=== PATIENT | female | born 1980 | race Caucasian/White ===

== ENCOUNTER 2018-08-17 21:21 | Emergency (ER) | payer OTHER ==
[~2018-08-17] VITALS: Ht 147.3 cm; Wt 51.2 kg
[~2018-08-17 21:21] MED LIST: ACET1TAB40 PO; ADV10050 INH; AMOX1TAB10 PO; AZIT250T PO; BISM262O23 PO; FAMO-96 PO; FLUT16SP17 NASAL; GENT5DRO28 RIGHT EYE; IBUP-1542 PO; IBUP-1561 PO; LORA-441 PO
[2018-08-17 21:36] VITALS: Ht 147.3 cm; Wt 51.2 kg
[2018-08-18] MEDS ORDERED: LIDOCAINE 1% (MDV) 20 ML INJ SC ONE
[2018-08-18] MEDS ORDERED: LIDOCAINE 1% (MPF) 5 ML VIAL INFIL ONE (00:30)
[2018-08-18] MEDS ORDERED: CEFTRIAXONE 1 GM INJ IM ONE (00:30)
[2018-08-18] MEDS ORDERED: TRIMETHOPRIM/SULFAMETHOX (DS) TAB PO ONE (00:30)
[2018-08-18] MEDS ORDERED: NAPR-985 PO (01:13)
[2018-08-18] MEDS ORDERED: SULF1TAB31 PO (01:13)
[2018-08-18] MEDS ORDERED: CEPH-443 PO (01:13)
[2018-08-18 01:29] VITALS: BP 126/81; PULSE 86; RESP 18
--- NOTE | 2018-08-18 03:19 | ERD ---
ER Documentation Chief Complaint Chief Complaint right abdominal abscess x 2 weeks HPI History of Present Illness: 37-year-old female who reports past medical history of asthma coming in today with complaint of possible right abdominal abscess that occurred approximately 2 weeks ago. Patient reports that she was with her in [place] and she believes she was bit by symptom. Patient reports that there was warmth and tenderness to palpation to the area of concern. 1.5 weeks ago her squeeze the area and smelling, yellow discharge came out of it. At home pharmacological/nonpharmacological treatment for symptoms: Denies Denies social concerns; Denies recent foreign travel ROS All systems reviewed and are negative except as per history of present illness. 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 08/18/18 Sulfamethoxazole/Trimethoprim* (Bactrim Ds* Tablet) 1 Each Tablet, 1 TAB PO BID for SKIN INFECTION for 10 Days, #14 TAB Prov:LEXY TRACEY NP 08/18/18 Allergies Allergies: Coded Allergies: No Known Drug Allergies (Verified Allergy, Unknown, 08/17/18) PMhx/Soc History of Surgery: Yes (FACIAL AND EAR SURGERY 10 YEARS AGO ) Hx Respiratory Disorders: Yes (ASTHMA) Hx Alcohol Use: No Hx Substance Use: No Hx Tobacco Use: No Smoking Status: Never smoker FmHx Family History: No diabetes, No coronary disease Physical Exam Vitals Vital Signs Date Temp Pulse Resp B/P (MAP) Pulse Ox O2 O2 Flow FiO2 Time Delivery Rate 08/18/18 98.0 86 18 126/81 98 Room Air 01:29 (96) 08/17/18 97.1 84 18 137/63 97 21:36 (87) Physical Exam Const: No acute distress Head: Atraumatic Eyes: Normal Conjunctiva ENT: Normal External Ears, Nose and Mouth. Neck: Full range of motion. No meningismus. Resp: Clear to auscultation bilaterally Cardio: Regular rate and rhythm, no murmurs Abd: Soft, non tender, non distended. Normal bowel sounds Skin: No petechiae or rashes; 2 x 2 centimeter area that is hollow with purulent drainage and subcutaneous tissue, with surrounding erythema Back: No midline or flank tenderness Ext: No cyanosis, or edema Neur: Awake and alert Psych: Normal Mood and Affect Results 24 hrs Current Medications Medications Dose Sig/[place] Start Time Status Last (Trade) Ordered Route PRN Stop Time Admin Dose Reason Admin Lidocaine 20 ml ONCE ONCE 08/18/18 DC (Xylocaine SC 00:00 08/18/18 1% (Mdv) 20 00:01 ml) Ceftriaxone 1 gm ONCE ONCE 08/18/18 DC 08/18/18 Sodium IM 00:30 08/18/18 00:45 (Rocephin) 00:32 Lidocaine 2.1 ml ONCE ONCE 08/18/18 DC 08/18/18 (Xylocaine INFIL 00:30 08/18/18 00:45 1% (Mpf)) 00:32 1 tab ONCE ONCE 08/18/18 DC 08/18/18 Trimethoprim/ PO 00:30 08/18/18 00:45 00:32 Sulfamethoxaz ole (Bactrim (Ds)) Procedures/MDM ED course includes a thorough examination and history. Medications: IM ceftriaxone, Bactrim Imaging: Labs: Low suspicion for life-threatening medical emergency. Low suspicion for infectious process that requires I V antibiotics or hospitalization; patient hemodynamically stable and afebrile without use of antipyretics. For acute abdominal emergency. ED course: Went to do incision and drainage, there was no pocket to actually drain. Wound cleaned with saline solution and Betadine. Wound dressed with 4 x 4 sterile gauze. 1% lidocaine used for anesthesia. Otherwise healthy patient presenting with constellation of symptoms likely representing abscess formation/cellulitis as characterized by history, physical exam findings. Patient reassessment: Patient hemodynamically stable. No respiratory distress, otherwise relatively well appearing and nontoxic. Discharge orders for Bactrim and IM ceftriaxone. Patient verbalized understanding of strict follow-up to ensure that wound is healing properly. Disposition given. Patient educated on diagnoses, prescriptions, follow-up care, return precautions. Strict return precautions given for worsening condition; questions answered discharge. Disposition for discharge with followup in 2 days with PCP/clinic. Departure Diagnosis: Primary Impression: Cellulitis Site of cellulitis: other site Qualified Codes: L03.818 - Cellulitis of ot her sites Additional Impression: Abscess Condition: Stable Patient Instructions: Cellulitis Referrals: [facility] YOU HAVE RECEIVED A MEDICAL SCREENING EXAM AND THE RESULTS INDICATE THAT YOU DO NOT HAVE A CONDITION THAT REQUIRES URGENT TREATMENT IN THE EMERGENCY DEPARTMENT. FURTHER EVALUATION AND TREATMENT OF YOUR CONDITION CAN WAIT UNTIL YOU ARE SEEN IN YOUR DOCTORS OFFICE WITHIN THE NEXT 1-2 DAYS. IT IS YOUR RESPONSIBILITY TO MAKE AN APPOINTMENT FOR FOLOW-UP CARE. IF YOU HAVE A PRIMARY DOCTOR --you should call your primary doctor and schedule an appointment IF YOU DO NOT HAVE A PRIMARY DOCTOR YOU CAN CALL OUR PHYSICIAN REFERRAL HOTLINE AT IF YOU CAN NOT AFFORD TO SEE A PHYSICIAN YOU CAN CHOSE FROM THE FOLLOWING [facility] [email or web address] [facility]. [facility] [email or web address] [facility] [address] [facility] [address]. [facility] [address] [facility]. [facility] [address] [facility]. [facility] YOU HAVE RECEIVED A MEDICAL SCREENING EXAM AND THE RESULTS INDICATE THAT YOU DO NOT HAVE A CONDITION THAT REQUIRES URGENT TREATMENT IN THE EMERGENCY DEPARTMENT. FURTHER EVALUATION AND TREATMENT OF YOUR CONDITION CAN WAIT UNTIL YOU ARE SEEN IN YOUR DOCTORS OFFICE WITHIN THE NEXT 1-2 DAYS. IT IS YOUR RESPONSIBILITY TO MAKE AN APPOINTMENT FOR FOLOW-UP CARE. IF YOU HAVE A PRIMARY DOCTOR --you should call your primary doctor and schedule and appointment IF YOU DO NOT HAVE A PRIMARY DOCTOR YOU CAN CALL OUR PHYSICIAN REFERRAL HOTLINE AT . IF YOU CAN NOT AFFORD TO SEE A PHYSICIAN YOU CAN CHOSE FROM THE FOLLOWING [facility] INSTITUTIONS: [facility] [id number] [place] [address] [facility] [address] [place] [address] [facility] [address] [place] [address] Additional Instructions: Thank you very much for allowing us to participate in your care. Your health and safety is our top priority at [facility]. It is important to read all discharge instructions and education provided in your discharge packet. *It is very important for you to see your primary care doctor for a wound reevaluation. We need to ensure that the antibiotics that were prescribed to you today for treating the infection that you have correctly.* Call your primary care doctor TOMORROW for an appointment during the next 2-4 days and bring all the information and medications prescribed. Have prescriptions filled and follow precisely the directions on the label. -Bactrim and cephalexin are antibioticS; take THESE medicationS every day eas listed on your prescription. You must complete the entire course of treatment that is listed on your prescription this is very important because it takes a certain number of days to kill the bacteria that is causing the infection. If the symptoms get worse and your provider is unavailable, return to the Emergency Department immediately. If you develop fever over 100.3, worsening warmth of the wound, worsening redness of the wound, increase pus discharge; then return to emergency department immediately. LEXY TRACEY NP August 18, 2018 03:19
== END 2018-08-18 01:39 | disposition home or self-care (01) ==
LOC: FTE 21:21
DX: L03.818 Cellulitis of other sites (principal); J45.909 Unspecified asthma, uncomplicated
CPT/HCPCS: 10060; 96372; J0696; Z7502; Z7610